=== PATIENT | female | born 1980 ===

== ENCOUNTER 2023-02-05 05:36 | Day surgery (SDC) | payer OTHER ==
[2023-02-04 12:08] VITALS: BMI 21.6
[2023-02-05 12:22] VITALS: BP 101/51; PULSE 57; RESP 17; TEMP 98.2
== END 2023-02-05 12:40 | disposition home or self-care (01) ==
LOC: JASU-ENDO 05:36
PROVIDERS: ATTEND Internal Medicine Gastroenterology
PROC: 0DBN8ZX Excision of Sigmoid Colon, Via Natural or Artificial Opening Endoscopic, Diagnostic (ICD-10-PCS; principal; 2023-02-05 10:45)
DX: D12.5 Benign neoplasm of sigmoid colon (principal); D12.7 Benign neoplasm of rectosigmoid junction; K64.8 Other hemorrhoids; K59.89 Other specified functional intestinal disorders
CPT/HCPCS: 81025; 88305-TC